=== PATIENT | male | born 1960 | race Caucasian/White ===

== ENCOUNTER 2016-03-29 10:29 | Outpatient (CLI) | payer OTHER | END 2016-03-29 10:30 | disposition home or self-care (01) | DX: G47.33 Obstructive sleep apnea (adult) (pediatric) (principal) ==

== ENCOUNTER 2016-06-06 09:04 | Outpatient (CLI) | payer OTHER | END 2016-06-06 09:05 | disposition home or self-care (01) | DX: G47.33 Obstructive sleep apnea (adult) (pediatric) (principal) ==

== ENCOUNTER 2018-07-24 09:04 | Outpatient (CLI) | payer OTHER | END 2018-07-24 09:05 | disposition home or self-care (01) | LOC: SC 09:04 | PROVIDERS: ATTEND Internal Medicine Pulmonary Disease | DX: G47.33 Obstructive sleep apnea (adult) (pediatric) (principal) | CPT/HCPCS: 99212; 99213 ==

== ENCOUNTER 2018-08-16 15:17 | Outpatient (CLI) | payer OTHER ==
--- NOTE | 2018-08-16 15:54 | XRAY Report ---
Reason: KNEE PAIN,BILATERAL Procedure Date: 08/16/2018 Accession Number: [id number] / [id number] Procedure: WCP - Knee 2 View BILAT CPT Code: FULL RESULT: EXAMS: 1. Right Knee Radiography 2. Left Knee Radiography EXAM DATE:08/16/2018 03:38 PM. CLINICAL HISTORY:KNEE PAIN,BILATERAL. COMPARISON: None. TECHNIQUE: 3 views each. FINDINGS: Right Knee: Bones: Normal. No fractures or bone lesions. Joints: Minimal patellofemoral osteoarthritis. Soft Tissues: Normal. No soft tissue swelling. Left Knee: Bones: Normal. No fractures or bone lesions. Joints: Minimal patellofemoral osteoarthritis. Soft Tissues: Normal. No soft tissue swelling. IMPRESSION: 1. Minimal bilateral patellofemoral osteoarthritis. 2. No acute abnormality or joint effusion. RADIA
== END 2018-08-16 15:18 | disposition home or self-care (01) ==
LOC: DI.WCP 15:17
PROVIDERS: ATTEND Family Medicine
DX: M17.0 Bilateral primary osteoarthritis of knee (principal)
CPT/HCPCS: 73565

== ENCOUNTER 2018-08-25 11:20 | Outpatient (CLI) | payer OTHER ==
--- NOTE | 2018-08-25 15:42 | Ultrasound Report ---
Reason: KNEE PAIN,BILATERAL,HYPERTENSION,BENIGN ESSENTIAL Procedure Date: 08/25/2018 Accession Number: [id number] / [id number] Procedure: US - Duplex Ext Veins Bilateral CPT Code: FULL RESULT: EXAM: BILATERAL LOWER EXTREMITY VENOUS ULTRASOUND EXAM DATE: 08/25/2018 12:27 PM. CLINICAL HISTORY: KNEE PAIN,BILATERAL,HYPERTENSION,BENIGN ESSENTIAL. COMPARISON: None. TECHNIQUE: Real-time sonographic vascular imaging was performed by the frontload driver through the lower extremities utilizing both color-flow and Doppler spectral analysis. Multiple packaging sales representative static images were saved for review. FINDINGS: Right: Common Femoral Vein (CFV): Normal. CFV-GSV Junction: Normal. Profunda Femoral Vein (PFV): Normal. Femoral Vein (FV) Prox: Normal. Femoral Vein (FV) Mid: Normal. Femoral Vein (FV) Dist: Normal. Popliteal Vein: Normal. Posterior Tibial Veins: Normal. Peroneal Veins: Normal. Left: Common Femoral Vein (CFV): Normal. CFV-GSV Junction: Normal. Profunda Femoral Vein (PFV): Normal. Femoral Vein (FV) Prox: Normal. Femoral Vein (FV) Mid: Normal. Femoral Vein (FV) Dist: Normal. Popliteal Vein: Normal. Posterior Tibial Veins: Normal. Peroneal Veins: Normal. Other: None. IMPRESSION: No evidence for deep venous thrombosis bilaterally. RADIA
== END 2018-08-25 11:21 | disposition home or self-care (01) ==
LOC: DI 11:20
PROVIDERS: ATTEND Family Medicine
DX: M25.561 Pain in right knee (principal); M25.562 Pain in left knee; I10 Essential (primary) hypertension
CPT/HCPCS: 93970

== ENCOUNTER 2019-04-16 11:35 | Outpatient (CLI) | payer OTHER ==
--- NOTE | 2019-04-16 12:48 | CT Report ---
Reason: CONTUSION OF EYEBALL, CONCUSSION W/O LOSS OF CONS Procedure Date: 04/16/2019 Accession Number: [id number] / [id number] Procedure: CT - HEAD WO CPT Code: Final Report FULL RESULT: EXAM: CT HEAD EXAM DATE: 04/16/2019 11:56 AM. CLINICAL HISTORY: Contusion of eyeball, concussion without loss of consciousness. COMPARISON: None. TECHNIQUE: Multiaxial CT images were obtained from the foramen magnum to the vertex. Reformats: Sagittal and coronal. IV contrast: None. In accordance with CT protocol optimization, one or more of the following dose reduction techniques were utilized for this exam: automated exposure control, adjustment of mA and/or KV based on patient size, or use of iterative reconstructive technique. FINDINGS: Parenchyma: No intraparenchymal hemorrhage. No evidence of mass, midline shift, or CT findings of infarction. Douglas-white differentiation is distinct. Extraaxial Spaces: Normal for age. No subdural or epidural collections identified. Ventricles: Normal in size and position. Sinuses and Orbits: Imaged paranasal sinuses, orbits, and mastoids show no significant abnormality. No retroseptal masses or fluid collections. No metallic radiopaque foreign bodies detected. Bones: No evidence of fracture or calvarial defect. Other: None. IMPRESSION: No acute intracranial hemorrhage or calvarial fracture. No mass effect. Overall symmetric appearance of the soft tissue components of the orbits. RADIA The call report notification system was initiated by Dr. Jorge Luis Corley at 12:48 PM on 04/16/2019. The above call report findings were discussed with Dr. Herr by Dr. Jorge Luis Corley at 12:53 PM on 04/16/2019.
== END 2019-04-16 11:36 | disposition home or self-care (01) ==
LOC: DI 11:35
PROVIDERS: ATTEND Family Medicine
DX: S05.12XA Contusion of eyeball and orbital tissues, left eye, initial encounter (principal); S06.0X0A Concussion without loss of consciousness, initial encounter
CPT/HCPCS: 70450

== ENCOUNTER 2019-05-08 09:39 | Outpatient (CLI) | payer OTHER ==
--- NOTE | 2019-05-08 16:22 | XRAY Report ---
Reason: LEFT ELBOW TENDINITIS Procedure Date: 05/08/2019 Accession Number: [id number] / [id number] Procedure: WCP - Elbow 2 View LT CPT Code: Final Report FULL RESULT: EXAM: LEFT ELBOW RADIOGRAPHY EXAM DATE: 05/08/2019 10:00 AM. CLINICAL HISTORY: LEFT ELBOW TENDINITIS. COMPARISON: None. TECHNIQUE: 2 views. FINDINGS: Bones: Normal. No fractures or bone lesions. Joints: Normal. No effusion. No subluxation. Soft Tissues: Normal. No soft tissue swelling. IMPRESSION: Normal left elbow radiography. RADIA
== END 2019-05-08 23:59 | disposition home or self-care (01) ==
LOC: DI.WCP 09:39
PROVIDERS: ATTEND Family Medicine
DX: M77.8 Other enthesopathies, not elsewhere classified (principal)

== ENCOUNTER 2020-04-02 07:59 | Outpatient (CLI) | payer OTHER ==
--- NOTE | 2020-04-02 16:35 | XRAY Report ---
PROCEDURE: Knee 4 View RT INDICATIONS: JOINT EFFUSION, RIGHT KNEE TECHNIQUE: 4 views of the right knee(s) were acquired. COMPARISON: X-ray knee 08/16/2018 FINDINGS: Bones: No fractures or dislocations. No suspicious bony lesions. Minimal medial patellofemoral com partment narrowing. No erosions or periarticular osteophytes. Soft tissues: No joint effusion. No suspicious soft tissue calcifications. IMPRESSION: Overall relatively stable exam demonstrating early arthritic change within the medial an d patellofemoral compartments. Reviewed by: Nya Jiang MD on 04/02/2020 4:33 PM PST Approved by: Nya Jiang MD on 04/02/2020 4:33 PM PST Station ID: [id number]
== END 2020-04-02 23:59 | disposition home or self-care (01) ==
LOC: DI.N 07:59
PROVIDERS: ATTEND Physician Assistant
DX: M17.11 Unilateral primary osteoarthritis, right knee (principal)

== ENCOUNTER 2022-12-12 08:00 | Outpatient (CLI) | payer OTHER ==
--- NOTE | 2022-12-12 13:58 | XRAY Report ---
PROCEDURE: Knee 4 View LT INDICATIONS: LEFT KNEE PAIN TECHNIQUE: 4 views of the left knee(s) were acquired. COMPARISON: Same day right knee radiographs and 08/26/2018. FINDINGS: Bones: No fractures or dislocations. Mild degenerative changes identified. This is most appreciated by osteophytic lipping at the superior patella, unchanged. No suspicious bony lesions. Soft tissues: No significant knee joint effusion. No suspicious soft tissue calcifications or masses . IMPRESSION: Mild left knee DJD, unchanged since 2019. Reviewed by: Leodan Bowman MD on 12/12/2022 1:57 PM PDT Approved by: Leodan Bowman MD on 12/12/2022 1:57 PM PDT Station ID: [id number]
== END 2022-12-12 23:59 | disposition home or self-care (01) ==
LOC: DI.WOS 08:00
PROVIDERS: ATTEND Physician Assistant Surgical
DX: M17.12 Unilateral primary osteoarthritis, left knee (principal)

== ENCOUNTER 2023-01-21 09:09 | Outpatient (CLI) | payer OTHER ==
[2023-01-21 19:20] LABS: HCT - HEMATOCRIT 47.4 % (42.0-52.0); HGB - HEMOGLOBIN 15.4 g/dL (14.0-18.0); MEAN CORPUSCULAR HEMOGLOBIN 31.2 pg (27.0-31.0); MEAN CORPUSCULAR HGB CONC 32.5 g/dL (32.0-36.0); MEAN CORPUSCULAR VOLUME 96.1 fL (80.0-94.0); MEAN PLATELET VOLUME 11.3 fL (7.4-11.4); RED BLOOD COUNT 4.93 10^6/uL (4.70-6.10); RED CELL DISTRIBUTION WIDTH 12.3 % (12.0-15.0); WHITE BLOOD COUNT 4.4 x10^3/uL (4.8-10.8)
[2023-01-21 19:36] LABS: ALKALINE PHOSPHATASE 52 IU/L (42-121); ALT ALANINE AMINOTRANSFERASE 23 IU/L (10-60); AST ASPARTATE AMINOTRANSFERASE 26 IU/L (10-42); BUN - BLOOD UREA NITROGEN 18 mg/dL (6-20); CALCIUM 9.9 mg/dL (8.5-10.3); CARBON DIOXIDE - CO2 29 mmol/L (21-32); CHLORIDE 103 mmol/L (101-111); CHOL/HDL RATIO 2.9 (<5.0); CHOLESTEROL 155 mg/dL; CREATININE 0.9 mg/dL (0.6-1.3); GFR - MDRD 86 (>89); GLUCOSE 97 mg/dL (74-104); HDL CHOLESTEROL 54 mg/dL; LDL CHOLESTEROL,CALCULATED 92 mg/dL; LDL/HDL RATIO 1.7 (<3.6); POTASSIUM 4.5 mmol/L (3.5-4.5); SODIUM 137 mmol/L (135-145); TOTAL PROTEIN 7.5 g/dL (6.4-8.9); TRIGLYCERIDES 47 mg/dL (48-352); VLDL CHOLESTEROL 9 mg/dL
[2023-01-21 20:47] LABS: FECAL OCCULT BLOOD (FIT) NEGATIVE (NEGATIVE)
[2023-01-21 21:15] LABS: ESTIMATED AVERAGE GLUCOSE 108 mg/dL (70-100); HEMOGLOBIN A1c% 5.4 % (4.27-6.07)
== END 2023-01-21 09:10 | disposition home or self-care (01) ==
LOC: LAB.N 09:09
PROVIDERS: ATTEND Family Medicine
DX: I10 Essential (primary) hypertension (principal); E87.5 Hyperkalemia; R73.01 Impaired fasting glucose; E66.9 Obesity, unspecified
CPT/HCPCS: 36415; 80053; 80061; 82274; 83036; 83721; 84153; 84443; 85027

== ENCOUNTER 2023-03-29 14:25 | Outpatient (CLI) | payer OTHER ==
--- NOTE | 2023-03-29 15:45 | Sleep Patient Instructions ---
Sleep Center Visit Summary - Patient Visit Information Reason for Visit: Initial consultation to re-establish care - Patient Instructions Additional Instructions: You will continue with CPAP therapy with pressure set at 13-17 cmH2O. A supply prescription will be sent to your selected CPAP supplier. I am adding an order for a new machine. Please call when you get this machine to set up compliance followup. We encourage you to continue to try to lose weight. Please follow up with the sleep care office one month after obtaining new device. - Clinic Information Contact: [facility] [address] [place] [id number] [email or web address] T: [phone]
--- NOTE | 2023-03-29 15:51 | SLEEP CARE CONSULTATION ---
Information from patient questionnaire entered by Shonda Meeks. I have reviewed and concur with the information entered by Shonda Meeks. This document represents the service I personally performed and the decisions made by me, Sigrid Sheehan ARNP. History of Present Illness Service Date and Time: 03/29/2023 1425 Reason for Visit: New patient, sleep apnea on CPAP therapy, Re-establish care Chief Complaint: reports: Other (UPDATE SUPPLIES) Date of Onset: I HAVE HAD A MACHINE FOR A LONG TIME Usual bedtime: 8PM Time it takes to fall asleep: MAYBE 30-60MINS Snores at night: No Observed to quit breathing while asleep: Yes Sleeps alone due to snoring: No Number of times waking at night: 2MIN Reasons for waking at night: reports: Bathroom Toss, Turn, or Twitch while sleeping: No Recalls having dreams: Yes Usually gets out of bed at: 4AM Feels refreshed in the morning: Yes Morning headache: Yes Sleepy or fatigued during the day: No Ever fallen asleep while driving: No Takes day naps: No Dreams during day naps: No Prior sleep studies: Yes Additional HPI information: JOAQUIN MAE was previously diagnosed in 2006 to have very severe, AHI 70.7, obstructive sleep apnea-hypopnea syndrome and comes in today for CPAP therapy. - Parasomnia Symptoms Ever been unable to move upon waking from sleep: No Walks in sleep: No Talks in sleep: No Ever acted out dreams in sleep: No Ever felt weak in the knees when startled or emotional: No Bothered by creepy, crawly, restless sensations in legs: No Problems with memory or concentration: No CPAP Compliance Data - Data Reviewed with Patient Average duration of nightly device use: 8 hours 6 minutes Compliance rate %: 97.8 (88/90 days used) Current pressure setting (cmH2O): 13-17 Average residual AHI: 0.4 Central apnea: 0.1 Obstructive apnea: 0.1 Hypopnea: 0.2 Average large leak: 19 secs Compliance data discussion: He has a Dreamstation that he has had since 2012. He did not know about the recall and it has not had it replaced. He used to get supplies from [employer] but they do not have supplies anymore. He uses a full face mask, ResMed Quattro Air, medium cushion. Subjective Patient concerns: denies: aerophagia, mask discomfort, air blowing in eyes, mask leak noise, condensation in mask/hose, nasal congestion, dry mouth, nose, throat, epistaxis Observed to snore while using device: No Current pressure setting perceived as: comfortable On therapy, patient: reports: sleeping better, awakening more refreshed, being more awake and alert during the day, more rested overall. 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 Patient is and lives in [place]. Have you smoked in the past 12 months: No Alcohol use: Yes Alcohol amount and frequency: 1 MIX IN A MONTH Caffeine use: Yes Caffeine amount and frequency: 10 CUP POT ONCE EVERY DAY Family History Family history of sleep disordered breathing: No Allergies and Home Medications Known drug allergies: No Drug allergies reviewed: Yes Home medication list reviewed: Yes Allergy and home medication list: Home Medications Medication Instructions Recorded Confirmed Last Taken Type Ascorbic Acid [Vitamin C] See Rx Instructions .ROUTE .COMPLEX 03/29/23 03/29/23 Unknown History Ibuprofen See Rx Instructions .ROUTE .COMPLEX 03/29/23 03/29/23 Unknown History Lisinopril [Zestril] See Rx Instructions .ROUTE .COMPLEX 03/29/23 03/29/23 Unknown History Omeprazole See Rx Instructions .ROUTE .COMPLEX 03/29/23 03/29/23 Unknown History Review of Systems Weight gain over past 5 years: 5 --- fluctuates 5 pounds regularly Weight loss over past 5 years: 5 Cardiovascular: reports: high blood pressure Gastrointestinal: reports: heartburn Psychiatric: denies: anxiety, depression Ear/Nose/Throat: denies: tonsillectomy, wisdom teeth removed Endocrine: reports: increased urination Musculoskeletal: reports: muscle pain or cramping Physical Exam Vital signs obtained and entered by: Shonda Huntley MA Blood Pressure: 156/90 (LEFT ARM) Cuff size: regular Heart Rate: 74 O2 Saturation: 99 Height: 5 ft 10 in Weight: 250 lb 9.6 oz Body Mass Index: 35.9 BMI Classification: Obese Neck circumference: 17.25 Heart: regular rate and rhythm Lungs: clear bilaterally Impression and Plan 1. Obstructive Sleep Apnea-Hypopnea Syndrome, very severe, with good treatment compliance and good apnea control. On CPAP therapy, the patient has better sleep quality and is more rested overall. Patient was last seen here in 2019. His machine was last updated in 2012 and is a DreamStation that may be on the recall. He states he did not know about the recall and has not had a replacement machine. He denies seeing any black debris or have any upper respiratory issues with using his machine. He needs to be set up with a new CPAP supplier. I will have my community health education coordinator inform of DME options. Patient advised to contact this office if further supply problems. The patients CPAP is over 5 years old and of reasonable use. Thus, the CPAP will be updated. A DWO prescription will be made. Compliance guidelines for new device and follow up discussed. Patient last had a sleep study in 2006 documenting his very severe obstructive sleep apnea with an AHI of 70.7. As long as we are able to find documentation of last sleep study we will be able to update his machine and supplies. He voiced understanding. Patient's apnea severity and rationale for treatment to reduce apnea, improve sleep quality and reduce cardiovascular and cerebrovascular events was reviewed. He has a history of hypertension. 2. Obesity, unspecified. Currently patients BMI is 35.9. Obesity increases the risk of apnea, CPAP pressure requirements and overall health risks especially cardiovascular and diabetes. Thus patient is advised to lose weight. * Continue auto CPAP pressure at 13-17 cmH2O * Transfer DME * Update machine * Update supply prescription * Notify me if snoring with mask or feeling that the pressure is too much or too little * Attempt to lose weight * Call this office if any problems using CPAP * Return for follow up one month after obtaining new device, or sooner if concerns arise Counseling Topics: Spare mask, Weight loss health impact Prescriptions: Auto CPAP, Device supplies Follow up with Sleep Care in: other (Compliance visit) Visit Type: In Office Time Spent with Patient (minutes): 36 Provider Statement: I spent 100% of the Face to Face Visit with the patient with greater than 50% spent counseling the patient and coordination of care.
[2023-03-29 16:26] VITALS: BP 156/90; O2SAT 99
== END 2023-03-29 14:26 | disposition home or self-care (01) ==
LOC: SC 14:25
PROVIDERS: ATTEND Nurse Practitioner Family
DX: G47.33 Obstructive sleep apnea (adult) (pediatric) (principal); E66.9 Obesity, unspecified; Z68.35 Body mass index [BMI] 35.0-35.9, adult
CPT/HCPCS: 99203; 99212

== ENCOUNTER 2023-06-06 15:25 | Outpatient (CLI) | payer OTHER ==
--- NOTE | 2023-06-06 16:43 | Sleep Patient Instructions ---
Sleep Center Visit Summary - Patient Visit Information Reason for Visit: First compliance follow-up - Patient Instructions Additional Instructions: You were here for follow up of CPAP therapy. You will be continued on CPAP therapy with pressure at 13-17 cmH2O. You should follow up with sleep care in 12 months. You may contact us sooner for any questions or concerns. - Clinic Information Contact: [facility] [address] [place] [address] [email or web address] T: [phone]
--- NOTE | 2023-06-06 16:48 | SLEEP CARE CONSULTATION ---
Information from patient questionnaire entered by Shonda Meeks. I have reviewed and concur with the information entered by Shonda Meeks. This document represents the service I personally performed and the decisions made by me, Sigrid Sheehan ARNP. History of Present Illness Service Date and Time: 06/06/2023 1525 Previous diagnosis: Very Severe, Obstructive Sleep Apnea-Hypopnea Syndrome AHI: 70.7 (2006) Reason for follow up: first compliance after device update Equipment type: CPAP (RESMED AIRSENSE 11 AUTOSET S/U 04/07/23) Equipment obtained from: Other ([facility]; getting supplies) Mask style: Full face Mask brand: Resmed (AirFit Quattro) Backup mask available: Yes (old mask) Last cushion change: last night Prior sleep studies: Yes Year and Where: 2006 [facility] HPI additional information: JOAQUIN MAE was diagnosed to have very severe, AHI 70.7, obstructive sleep apnea-hypopnea syndrome and returned today for CPAP therapy first compliance after updating device follow-up. Sleep Study - Results Prior sleep studies: Yes CPAP Compliance Data - Data Reviewed with Patient Average duration of nightly device use: 7 HRS 53 MINS Compliance rate %: 70 (04/29-05/17/23; days used) Current pressure setting (cmH2O): 13-17 Average residual AHI: 0.2 Central apnea: 0.1 Obstructive apnea: 0 Hypopnea: 0 Average large leak: 1.8 L/min Subjective Missed days of use due to: reports: other (power outage) Patient concerns: denies: aerophagia, mask discomfort, air blowing in eyes, mask leak noise, condensation in mask/hose, nasal congestion, dry mouth, nose, throat, epistaxis Observed to snore while using device: No Current pressure setting perceived as: comfortable On therapy, patient: reports: sleeping better, awakening more refreshed, being more awake and alert during the day, more rested overall. denies: drowsiness while driving Initial [place] Sleepiness Scale score: 0 (03/29/23) Current [place] Sleepiness Scale score: 1 Allergies and Home Medications Known drug allergies: No Drug allergies reviewed: Yes Home medication list reviewed: Yes (blood pressure pill; inflammation pill; omeprazole) Allergy and home medication list: Allergies No Known Drug Allergies Allergy (Verified 06/02/23 10:57) Review of Systems Review of systems same as previous: Yes (no changes) Physical Exam Vital signs obtained and entered by: SIGRID DE DIOS-Yuko Blood Pressure: 133/77 Cuff size: wrist (left) Heart Rate: 58 O2 Saturation: 98 Height: 5 ft 10 in Weight: 252 lb 9.6 oz Body Mass Index: 36.2 BMI Classification: Obese Impression and Plan 1. Obstructive Sleep Apnea-Hypopnea Syndrome, very severe, with good treatment compliance and good apnea control. On CPAP therapy, the patient has better sleep quality and is more rested overall. Patient really likes his new device. He states [facility] sent him a replacement device for his recalled machine. He took it down to [facility] and they programmed it for him so he could use it as a backup for traveling. Patient has significant improvement of their sleep apnea and is satisfied with current CPAP therapy. Patient denies problems with oral dryness, nasal congestion, epistaxis, skin irritation or aerophagia. Patient's apnea severity and rationale for treatment to reduce apnea, improve sleep quality and reduce cardiovascular and cerebrovascular events was reviewed. I also reviewed the benefit of consistent device use of CPAP for hypertension. 2. Obesity, unspecified. Currently patients BMI is 36.2. Obesity increases the risk of apnea, CPAP pressure requirements and overall health risks especially cardiovascular and diabetes. Thus patient is advised to lose weight. * Continue auto CPAP pressure at 13-17 cmH2O * Notify me if snoring with mask or feeling that the pressure is too much or too little * Attempt to lose weight * Call this office if any problems using CPAP * Return for follow up in 12 months, or sooner if concerns arise Counseling Topics: Spare mask, Weight loss health impact Follow up with Sleep Care in: 1 year Visit Type: In Office Time Spent with Patient (minutes): 20 Provider Statement: I spent 100% of the Face to Face Visit with the patient with greater than 50% spent counseling the patient and coordination of care.
[2023-06-06 16:54] VITALS: BP 133/77; O2SAT 98
== END 2023-06-06 15:26 | disposition home or self-care (01) ==
LOC: SC 15:25
PROVIDERS: ATTEND Nurse Practitioner Family
DX: G47.33 Obstructive sleep apnea (adult) (pediatric) (principal); E66.9 Obesity, unspecified; Z68.36 Body mass index [BMI] 36.0-36.9, adult
CPT/HCPCS: 99212; 99213

== ENCOUNTER 2023-06-22 13:45 | Outpatient (CLI) | payer OTHER ==
--- NOTE | 2023-06-22 17:22 | XRAY Report ---
PROCEDURE: Knee 4 View LT INDICATIONS: LEFT KNEE PAIN TECHNIQUE: 4 views of the knee(s) were acquired. COMPARISON: 4 views of the left knee dated 12/12/2022. FINDINGS: Bones: No fractures or dislocations. No suspicious bony lesions. There is mild bilateral femoroti bial compartment narrowing and small intercondylar osteophytes. There is a small patellofemoral osteo phyte. Findings are unchanged from the study dated 12/12/2022. Soft tissues: No knee joint effusion. No suspicious soft tissue calcifications or masses. IMPRESSION: No acute bony abnormality. If there remains a high clinical concern for fracture, consider cross-sect ional imaging now. If pain persists, consider repeat x-ray in 10-14 days or cross-sectional imaging. Mild osteoarthritis. Reviewed by: Kia Ramírez MD on 06/22/2023 5:20 PM PDT Approved by: Kia Ramírez MD on 06/22/2023 5:20 PM PDT Station ID: [id number]
== END 2023-06-22 23:59 | disposition home or self-care (01) ==
LOC: DI.WOS 13:45
PROVIDERS: ATTEND Physician Assistant Surgical
DX: M17.12 Unilateral primary osteoarthritis, left knee (principal)